=== PATIENT | female | born 1960 | race Caucasian/White ===

== ENCOUNTER → 2016-12-20 | Outpatient (CLI) | payer BC ==
[~2016-12-20] MED LIST: ASACOL400 MG PO; ASPIRIN PO; BLACK COHOSH540 MG PO; FISH OIL 1,2001 EACH PO; FLEXERIL10 MG PO; GLUCOTROL PO; HYZAAR 50-12.51 TAB PO; LEVOTHROID112 MCG PO; LIPITOR PO; LOPRESSOR PO; LORTAB 5/500 TA1 TA1 PO; LOSARTAN-HCTZ1 EAC2 PO; NORVASC PO; THYROXINE PO
--- NOTE | ~2016-12-20 | MY29 ---
[facility] A Service of [facility] RADIOLOGY TEXT RESULTS PATIENT: YEISON LUGO LOCATION: [facility] : 58 UNIT #: [id number] AGE: [address]: Darren Hull MD SEX: F ORDER DR: [id number] [facility] [address] [place], [place] [address] [id number] O MR#: [id number] Acc #: [id number] NAME: YEISON LUGO. : 1960 SEX: F STUDY DATE/TIME: 12/20/2016 8:50 UNIT: [facility] ROOM: STUDY DESCRIPTION: MY BONY SCREENING W/ CAD BILAT Attending Physician: Darren Hull Jr., M.D. Referring Physician: Darren Hull Jr., M.D. Ordering Physician: Darren Hull Jr., M.D. Primary Care Physician: Darren Hull Jr., M.D. MEDICAL IMAGING REPORT This report is preliminary unless electronic signature is present EXAM Digital screening mammogram 12/20/2016 HISTORY 56-year-old woman no risk elevation. Annual screening. COMPARISON Mammograms date to 07/21/2008 with most recent 11/10/2015 FINDINGS Digital imaging of each breast was completed utilizing a two-view examination of each breast in craniocaudal and mediolateral-oblique projections. Review and interpretation of digital mammograms include a second review in conjunction with FDA-approved CAD device. There is a normal parenchymal presentation bilaterally consistent with the patient's age. There are no breast masses imaged and no parenchymal asymmetry is visualized. There are no suspicious microcalcifications and I see no focal architectural disturbance. IMPRESSION Negative screening digital mammogram. One-year followup recommended. Patients over the age of 40 are entered into a reminder system with target due date for the next mammogram. A result letter will also be sent to the patient. BIRADS: 1 Negative ADDENDUM Breast parenchyma is fatty replaced Dictated by... Flo Negrete M.D. [facility] A Service of [facility] RADIOLOGY TEXT RESULTS PATIENT: YEISON LUGO LOCATION: [facility] #: [id number] : 58 UNIT #: [id number] AGE: [address]: Darren Hull MD SEX: F ORDER DR: THIS IS AN ELECTRONICALLY VERIFIED REPORT Flo Negrete M.D. at 12/20/2016 3:53 PM RACHANA/hussein TD: 12/20/2016 15:44 JOB #: [id number] MEDICAL IMAGING REPORT Page 1 of 1 COPY
== END | disposition home or self-care (01) ==
LOC: CWCC 08:01
DX: Z12.31 Encounter for screening mammogram for malignant neoplasm of breast (principal)
CPT/HCPCS: G0202